=== PATIENT | female | born 1985 | race Caucasian/White ===

== ENCOUNTER 2024-11-09 15:11 | Outpatient (CLI) | payer OTHER | END 2024-11-09 16:25 | disposition home or self-care (01) | LOC: NST 15:11 | PROVIDERS: ATTEND Obstetrics & Gynecology Gynecology | DX: Z3A.39 39 weeks gestation of pregnancy (principal) ==

== ENCOUNTER 2024-11-10 14:24 | Outpatient (CLI) | payer OTHER ==
[2024-11-10 13:53] VITALS: BP 119/73
[2024-11-10 15:13] VITALS: BP 115/76
[2024-11-10 19:12] VITALS: BP 121/73
[2024-11-10 22:40] VITALS: BP 121/73
== END 2024-11-10 21:35 | disposition home or self-care (01) ==
LOC: OBS/DEL 14:24
PROVIDERS: ATTEND Obstetrics & Gynecology Gynecology
DX: O26.893 Other specified pregnancy related conditions, third trimester (principal); Z3A.39 39 weeks gestation of pregnancy